=== PATIENT | male | born 1970 | race Caucasian/White ===

== ENCOUNTER 2019-04-20 10:18 | Inpatient (IN) ==
[2019-04-20] MEDS ORDERED: IMODIUM PO PRN ×2 (13:42)
[2019-04-20] MEDS ORDERED: NICOTINE GUM BUCCAL PRN (13:42)
[2019-04-20] MEDS ORDERED: TYLENOL PO PRN (13:42)
[2019-04-20] MEDS ORDERED: TUBERSOL ID ONE (13:42)
[2019-04-20] MEDS ORDERED: PHENOBARBITAL IV PRN (13:42)
[2019-04-20] MEDS ORDERED: DESYREL PO PRN (13:42)
[2019-04-20] MEDS ORDERED: MOTRIN PO PRN (13:42)
[2019-04-20] MEDS ORDERED: NICODERM PATCH TD PRN (13:42)
[2019-04-20] MEDS ORDERED: SENOKOT PO PRN (13:42)
[2019-04-20] MEDS ORDERED: ZOFRAN ODT PO PRN (13:42)
[2019-04-20] MEDS ORDERED: ZOFRAN IM PRN (13:42)
[2019-04-20] MEDS ORDERED: D5W 1,000 ML IV PRN (13:42)
[2019-04-20] MEDS ORDERED: MAALOX PLUS LIQUID PO PRN (13:42)
[2019-04-20] MEDS ORDERED: SEROQUEL PO PRN (13:42)
[2019-04-20] MEDS ORDERED: DULCOLAX PR PRN (13:42)
[2019-04-20] MEDS ORDERED: ZOFRAN IV PRN (13:42)
[2019-04-20 14:22] LABS: HEMOGLOBIN 14.6 g/dL (14.0-18.0); MCH 29.7 PG (27-31); MCV 87.6 FL (81-99); MPV 10.2 FL (7.4-10.4); RBC 4.91 XMIL (4.7-6.1); RDW 13.1 % (11.5-14.5); WBC 8.95 X1000 (4.8-10.8)
[2019-04-20 14:24] LABS: UR AMPHETAMINES QUAL NONE DETECTED (NONE DETECT); UR BARBITUATES QUAL NONE DETECTED (NONE DETECT); UR BENZODIAZEPIN QUAL NONE DETECTED (NONE DETECT); UR CANNABINOIDS QUAL PRESUMPTIVE POSITIVE (NONE DETECT); UR COCAINE QUAL NONE DETECTED (NONE DETECT); UR METHADONE QUAL NONE DETECTED (NONE DETECT); UR METHAMPHETAMINE QUAL NONE DETECTED (NONE DETECT); UR OPIATES QUAL NONE DETECTED (NONE DETECT); UR OXYCODONE QUAL NONE DETECTED (NONE DETECT); UR PCP QUAL NONE DETECTED (NONE DETECT); UR PROPOXYPHENE QUAL NONE DETECTED (NONE DETECT); UR TCA QUAL NONE DETECTED (NONE DETECT)
[2019-04-20 14:28] LABS: INR 0.99; PROTIME 13.6 Seconds (11.0-16.0)
[2019-04-20 14:47] LABS: AGAP 10; ALBUMIN 4.4 g/dL (3.5-5.0); ALKALINE PHOSPHATASE 72 U/L (32-122); AMYLASE 100 U/L (20-200); BUN 10 mg/dL (8-22); CALCIUM 9.7 mg/dL (8.8-10.2); CHLORIDE 104 mmol/L (98-107); COSMO 280; CREATININE 0.7 mg/dL (0.7-1.2); ESTIMATED GFR > 60; GLUCOSE 121 mg/dL (70-104); GOT 17 U/L (10-34); GPT 15 U/L (10-44); LIPASE 89 U/L (13-60); POTASSIUM 4.4 mmol/L (3.5-5.1); SODIUM 140 mmol/L (136-145); TCO2 26 mmol/L (25-35); TOTAL PROTEIN 7.1 g/dL (6.3-8.3)
[2019-04-20] MEDS ORDERED: BENTYL PO PRN (16:59)
[2019-04-20] MEDS ORDERED: SINEMET 25/100 PO PRN (16:59)
[2019-04-20 18:30] LABS: URINE SOURCE CLEAN CATCH
[2019-04-20 18:33] LABS: BILIRUBIN URINE NEGATIVE (NEGATIVE); BLOOD URINE NEGATIVE (NEGATIVE); GLUCOSE URINE NEGATIVE (NEGATIVE); KETONE URINE TRACE mg/dL (NEGATIVE); LEUKOCYTES URINE TRACE (NEGATIVE); NITRITE URINE NEGATIVE (NEGATIVE); PROTEIN URINE TRACE mg/dL (NEGATIVE); UROBILINOGEN URINE 1 mg/dL
[2019-04-20 18:34] LABS: CLARITY CLEAR (CLEAR); COLOR YELLOW
[2019-04-20 18:37] LABS: URINE BACTERIA NEGATIVE /HFP; URINE CAST NONE SEEN /LPF; URINE EPITHELIAL CELLS <10 /HPF (<10); URINE RBC <10 /HPF (<10); URINE WBC <10 /HPF (<10); URINE YEAST NONE SEEN /HPF
[2019-04-20 18:38] LABS: URINE CRYSTAL CA OXALATE PRESENT /HPF
[2019-04-20] MEDS: SUBOXONE 2 MG/0.5 MG FILM SL SCH (21:25)
[2019-04-20] MEDS: ROBAXIN PO PRN (21:25)
[2019-04-20] MEDS: ATARAX PO PRN (21:25)
[2019-04-21] MEDS: PROTONIX PO SCH (06:19)
[2019-04-21] MEDS: SUBOXONE 2 MG/0.5 MG FILM SL SCH ×2 (08:06→20:06)
[2019-04-21] MEDS: THERA M PLUS PO SCH (08:06)
[2019-04-21] MEDS: VITAMIN B-1 PO SCH (08:06)
[2019-04-21] MEDS: FOLIC ACID PO SCH (08:06)
[2019-04-21] MEDS: ATARAX PO PRN (08:18)
[2019-04-21] MEDS: ROBAXIN PO PRN (08:19)
[2019-04-21] MEDS: LIBRIUM PO PRN ×2 (15:29→23:49)
--- NOTE | 2019-04-21 18:45 | HISTORY AND PHYSICAL ---
CHIEF COMPLAINT: Nausea and vomiting. HISTORY OF PRESENT ILLNESS: The patient is a 42-year-old male who has a longstanding history of opiate abuse. He actually had been doing quite well and had been clean for almost 2 years on Suboxone. He has recently tried to go back to work which has caused him to miss 2 appointments in his Suboxone clinic, and he stopped going after that. He thought he could wean totally off. Unfortunately, after a week or so being off Suboxone, his withdrawal symptoms became more severe of nausea, vomiting, abdominal pain, and myalgias. He started abusing opiates again to relieve said symptoms. SOCIAL HISTORY: The patient is . He is on disability due to spina bifida and chronic back pain. Lives at home in [place]. PAST MEDICAL HISTORY: Partial left lower lobectomy secondary to cancer, spina bifida, chronic back pain, COPD, asthma, chronic anxiety and depression which has been worsened recently secondary to opiate abuse again, history of blackouts and head injury due to opiate use, history of hypertension, asthma, recurrent bronchitis. MEDICATIONS: ProAir, albuterol. Has been on Suboxone the 28 of March. ALLERGIES: No known drug allergies. REVIEW OF SYSTEMS: CINA score is 11 secondary to nausea, vomiting, abdominal pain, anxiety, frequent sweating, abdominal cramping, restlessness, depression. Denies current fevers, chills. Denies chest pain. Denies any recent change in breathing. Denies any diarrhea, constipation, melena, hematochezia. Denies any recent weight loss but also really does not check his weight on any regular basis. Denies skin rashes. SUBSTANCE ABUSE HISTORY: The patient was in [facility] in 2018 and had been clean on Suboxone since then until just recently. The patient notes that opiate use has caused him lots of social, emotional, and legal issues that thankfully have cleared up since he has stopped. Started drinking at age 18, currently does not drink, has not drank in 10 years. Started marijuana at age 14, currently smokes once or twice a week. Started opiates at age 34, has been clean on Suboxone for the past 3 years until the past 3 weeks, currently using 30 to 40 mg of Lortab a day. Started smoking at 16 and currently smokes 1-1/2 packs a day. FAMILY HISTORY: Noncontributory. PHYSICAL EXAMINATION: VITAL SIGNS: Reviewed. GENERAL: The patient is awake, alert. He is in no current distress. HEENT: Normocephalic. NECK: Supple. CARDIOVASCULAR: Regular rate. CHEST: Clear. ABDOMEN: Soft. EXTREMITIES: Moves all extremities. NEUROLOGIC: No focal changes. SKIN: Warm, dry. No rashes. ASSESSMENT: 1. Nausea and vomiting. 2. Abdominal pain. 3. Myalgias. 4. Paresthesias. 5. Paroxysmal sweating. 6. Asthma. 7. Hypertension. 8. Opiate abuse withdrawal and stabilization. PLAN: We will continue the patient in the hospital, place him back on Suboxone, and begin counseling. Further orders as needed. cc: Brandt Ornelas MD
[2019-04-22] MEDS: PROTONIX PO SCH ×2 (06:01→07:56)
[2019-04-22 07:27] VITALS: BP 131/78
[2019-04-22] MEDS: SUBOXONE 2 MG/0.5 MG FILM SL SCH (07:55)
[2019-04-22] MEDS: VITAMIN B-1 PO SCH ×2 (07:55→10:08)
[2019-04-22] MEDS: THERA M PLUS PO SCH ×2 (07:55→10:09)
[2019-04-22] MEDS: FOLIC ACID PO SCH ×2 (07:55→10:08)
[2019-04-22] MEDS ORDERED: SUBOXONE 2 MG/0.5 MG FILM SL ONE (11:10)
[2019-04-22] MEDS: ATARAX PO PRN (11:39)
--- NOTE | 2019-04-23 18:03 | DISCHARGE SUMMARY ---
ADMISSION DATE: 04/20/2019 DISCHARGE DATE: 04/22/2019 DISCHARGE DIAGNOSES: 1. Nausea and vomiting. 2. Abdominal pain. 3. Myalgias. 4. Paresthesias. 5. Opiate withdrawal and stabilization. CONSULTATIONS: None. PROCEDURES: None. BRIEF HOSPITAL COURSE: The patient is a 48-year-old male who has actually done very well on Suboxone. He has had some life changes and had difficulty getting to his appointment and felt as though he had done so well that he would just simply wean off Suboxone. He notes that he tolerated this for 3 or 4 days and then symptoms became so severe that he started searching out and unfortunately found opiates off the street. He notes that he does not want to go back to that life, as he has recently been improving and previously had destroyed his family, his social life, etc. Thankfully patient the did very well. Started back on Suboxone. He is tolerating a full strip in the morning and 1/2 strip in the evening. DISPOSITION: The patient will be discharged home. I discussed with him that he should stay on 1- 1/2 strips a day for the next several months. Once he is back under control, then we will start discussing how to more slowly wean off and that he should not stop at that level, which is what he had done so previously and created his acute withdrawal issues. Greater than 30 minutes was spent in total care and consultation. No other changes were made on his diet or activity otherwise. Again, I discussed with him that he needs outpatient life counseling as well as drug counseling. cc: Brandt Ornelas MD
== END 2019-04-22 13:28 | disposition home or self-care (01) | DRG 897 ==
LOC: P.DIRADM 12:12 → P.MEDSURG 12:19
PROVIDERS: ADMIT Family Medicine; ATTEND Family Medicine
CPT/HCPCS: 80053; 80104; 80301; 80305; 80307; 80320; 81001; 82055; 82150; 83690; 85027; 85610; 86580; A9270; G0431; G0434; G0477; G0480; G6040; J2405